=== PATIENT | male | born 1950 | race Caucasian/White ===

== ENCOUNTER 2017-08-12 18:12 | Emergency (ER) | payer OTHER, BC ==
[~2017-08-12] VITALS: Ht 175.3 cm; Wt 67.2 kg
[~2017-08-12 18:12] MED LIST: DUONEB 2.5-0.5 M3 ML AEROSOL; PREDNISONE5 MG PO; XANAX0.5 MG PO
[2017-08-12] MEDS ORDERED: NAPROSYN500 MG PO (21:23)
[2017-08-12] MEDS ORDERED: NORCO 5/3251 TABLET PO (21:23)
[2017-08-12] MEDS ORDERED: FLEXERIL10 MG PO (21:23)
[2017-08-12 21:43] VITALS: BP 148/88
== END 2017-08-12 21:44 | disposition home or self-care (01) ==
LOC: EXP 18:12 → EME 18:12 → EXP 21:44
DX: S16.1XXA Strain of muscle, fascia and tendon at neck level, initial encounter (principal); R51 Headache; S40.212A Abrasion of left shoulder, initial encounter; V49.40XA Driver injured in collision with unspecified motor vehicles in traffic accident, initial encounter; Y92.410 Unspecified street and highway as the place of occurrence of the external cause; F17.200 Nicotine dependence, unspecified, uncomplicated
CPT/HCPCS: 70450; 72125; 99281; 99284

== ENCOUNTER 2018-04-20 11:11 | Emergency (ER) | payer OTHER, BC ==
[~2018-04-20] VITALS: Ht 175.3 cm; Wt 66.6 kg
[~2018-04-20 11:11] MED LIST changes: +FLEXERIL10 MG PO; +NAPROSYN500 MG PO; +NORCO 5/3251 TABLET PO
[2018-04-20 11:59] LABS: HEMATOCRIT 46.3 % (38.0-50.0); MCH 31.7 PG (29.0-34.0); MCHC 34.6 G/DL (30.0-36.0); MCV 91.7 FL (86-99); PLATELET COUNT 216 K/uL (156-360); RBC DIS.WIDTH-CV 13.6 % (11.8-14.6); RBC DIS.WIDTH-SD 46.2 % (39-53); RED BLOOD COUNT 5.05 M/uL (4.00-5.50); WHITE BLOOD COUNT 7.7 K/uL (4.1-10.2)
[2018-04-20 12:11] LABS: ALBUMIN 3.9 g/dL (3.2-4.8); CHLORIDE 106 mEq/L (99-109); POTASSIUM 4.5 mEq/L (3.7-5.4); SODIUM 142 mEq/L (136-147)
[2018-04-20 12:12] LABS: MAGNESIUM 2.3 mg/dL (1.3-2.7)
[2018-04-20 12:14] LABS: GLUCOSE 92 mg/dL (70-99)
[2018-04-20 12:16] LABS: TOTAL BILIRUBIN 0.3 mg/dL (0.0-1.0)
[2018-04-20 12:17] LABS: ALKALINE PHOSPHATASE 63 IU/L (3-129)
[2018-04-20 12:18] LABS: CREATININE 0.9 mg/dL (0.6-1.3); GFR ESTIMATE (CALCULATED) > 59 mL/min/ (58.99-99999)
[2018-04-20 12:19] LABS: AST (GOT) 25 IU/L (2-34); UREA NITROGEN (BUN) 15 mg/dL (9-23)
[2018-04-20 12:20] LABS: ALT (GPT) 16 IU/L (3-49)
[2018-04-20 12:44] LABS: BASOPHIL (%) 0.3 % (0-1); EOSINOPHIL (%) 3.9 % (0-5); EOSINOPHIL COUNT 0.3 K/uL (0-0.3); IMMATURE GRANULOCYTE (%) 0.4 % (0.0-0.7); LYMPHOCYTE (%) 20.3 % (15-42); LYMPHOCYTE COUNT 1.6 K/uL (1.0-2.8); MONOCYTE (%) 15.1 % (3-12); MONOCYTE COUNT 1.2 K/uL (0-0.8); NEUTROPHIL COUNT 4.6 K/uL (1.8-6.4); PLAT.SUFFICIENCY ADEQUATE
[2018-04-20] MEDS ORDERED: PREDNISONE20 MG PO (13:34)
[2018-04-20 13:39] LABS: TROP-I INTERPRETATION NEGATIVE; TROPONIN-I < 0.01 ng/mL (0.0-0.30)
[2018-04-20 14:04] VITALS: BP 133/75
== END 2018-04-20 14:05 | disposition home or self-care (01) ==
LOC: EME 11:11
PROVIDERS: Emergency Medicine
DX: J44.1 Chronic obstructive pulmonary disease with (acute) exacerbation (principal); I10 Essential (primary) hypertension; E78.5 Hyperlipidemia, unspecified; F17.200 Nicotine dependence, unspecified, uncomplicated
CPT/HCPCS: 71046; 80053; 83735; 84484; 85025; 93005; 94640; 99281; 99285; J7512